=== PATIENT | female | born 1940 | race Caucasian/White ===

== ENCOUNTER 2022-02-24 16:27 | Emergency (ER) | payer MEDICARE, BC ==
[~2022-02-24] VITALS: Ht 152.4 cm; Wt 58.2 kg
[~2022-02-24 16:27] MED LIST: AQUAPHOR HEALING41% TP; BENADRYL25 M2 PO; CLARITIN 1010 MG/TAB PO; CLEOCIN HCL300 MG PO; EYE DROPS; MUCINEX 60600 MG/TA1 PO; MYCOSTATIN100000 U/1 TP; NEILMED SINUS R1 PKT NS; PREDNISONE20 MG PO; PREVACID24HROTC; SINGULAIR 110 MG/TAB PO; SUDAFED30 MG PO; SYNTHROID 0.0.025 MG; TYLENOL 325MG325 MG PO; XALATAN EYE DROPS OD; ZANTAC 7575 MG PO
[2022-02-24 16:55] VITALS: TEMP 100.6
[2022-02-24 19:35] VITALS: BP 132/78; PULSE 76
== END 2022-02-24 19:35 | disposition home or self-care (01) ==
LOC: COL.ER 16:27
DX: U07.1 COVID-19 (principal)
CPT/HCPCS: M0222; Q0222